=== PATIENT | male | born 1955 | race African-American/Black ===

== ENCOUNTER → 2017-10-16 | Outpatient (CLI) | payer MEDICARE, MEDICAID | END | disposition home or self-care (01) | LOC: KCIC 12:49 | DX: S59.292A Other physeal fracture of lower end of radius, left arm, initial encounter for closed fracture (principal); M79.89 Other specified soft tissue disorders; X58.XXXA Exposure to other specified factors, initial encounter; Y93.89 Activity, other specified; Y92.89 Other specified places as the place of occurrence of the external cause; Y99.8 Other external cause status | CPT/HCPCS: 73110 ==

== ENCOUNTER → 2018-07-10 | Outpatient (CLI) | payer MEDICARE, MEDICAID ==
[~2018-07-10] MED LIST: ALPR0.5T6 PO; EMTR1TAB8 PO; IBUP200T44 PO; RALT400T PO; TRAV5DRO OP
--- NOTE | 2018-07-10 17:21 | RAD ---
Renal ultrasound HISTORY: CKD stage III FINDINGS: Inferior vena cava and aorta are secured by bowel gas. Right kidney measures 11.6 x 4.8 x 5.4 cm. No hydronephrosis. Left kidney measures 11.0 x 5.2 x 4.9 cm. No evidence of hydronephrosis. Bilateral ureteric jets are seen in the urinary bladder. Prostate volume is 59 cc. IMPRESSION: No sonographic abnormality of either kidney. Electronically signed by: Clement Blanc MD (07/10/2018 5:18 PM) [facility]
== END | disposition home or self-care (01) ==
LOC: US 15:17
PROVIDERS: ATTEND Internal Medicine Nephrology
DX: N18.3 Chronic kidney disease, stage 3 (moderate) (principal); E66.9 Obesity, unspecified
CPT/HCPCS: 76770

== ENCOUNTER → 2019-09-03 | Outpatient (CLI) | payer MEDICARE, MEDICAID ==
[~2019-09-03] MED LIST changes: +ABAC1TAB13 PO; +ACET325T9 PO; +BYSTOLIC5 MG PO; +CHOL500051 PO; +HYDR-3164 PO
[2019-09-03 14:26] LABS: BASO # 0.1 x10^3/uL (0.0-0.2); BASO % 1 % (0-3); EOS # 0.1 x10^3/uL (0.0-0.7); EOS % 3 % (0-3); HEMATOCRIT 45.5 % (39.0-53.0); HEMOGLOBIN 15.6 g/dL (13.0-17.5); LYMPH # 1.3 x10^3/uL (1.0-4.8); LYMPH % 29 % (24-48); MEAN CORPUSCULAR HEMOGLOBIN 31 pg (25-35); MEAN CORPUSCULAR HGB CONC 34 g/dL (31-37); MEAN CORPUSCULAR VOLUME 91 fL (79-100); MONO # 0.5 x10^3/uL (0.0-1.1); MONO % 12 % (0-9); NEUT # 2.4 x10^3/uL (1.8-7.7); NEUT % 55 % (31-73); PLATELET COUNT 182 x10^3/uL (140-400); RED BLOOD COUNT 4.98 x10^6/uL (4.30-5.70); RED CELL DISTRIBUTION WIDTH 14.9 % (11.5-14.5); WHITE BLOOD COUNT 4.4 x10^3/uL (4.0-11.0)
[2019-09-03 14:42] LABS: CALCIUM 8.5 mg/dL (8.5-10.1); CREATININE 1.5 mg/dL (0.7-1.3); GFR 56.8; POTASSIUM 3.8 mmol/L (3.5-5.1)
== END | disposition home or self-care (01) ==
LOC: SURGPAT 13:00
PROVIDERS: ATTEND Surgery
DX: Z01.818 Encounter for other preprocedural examination (principal); Z11.59 Encounter for screening for other viral diseases; L72.3 Sebaceous cyst
CPT/HCPCS: 36415; 80048; 85025; U0003

== ENCOUNTER 2019-09-08 08:23 | Day surgery (SDC) | payer MEDICARE, MEDICAID ==
[~2019-09-08] VITALS: Ht 182.9 cm; Wt 108.5 kg
[~2019-09-08 08:23] MED LIST changes: +BUPIVACAINE-EPI 0.5%-1:200000 MPF 30 ML VIAL. ONE; -HYDR-3164 PO; +HYDROmorphone 2 MG/ML VIAL IV PRN; +IV RINGERS,LACTATED 1000ML 1,000 ML IV SCH; +LIDOCAINE 1% PF 2 ML VIAL. ID PRN; +MORPHINE SULFATE 2 MG/ML VIAL. IV PRN; +ONDANSETRON PF 4 MG/2 ML VIAL. IV PRN; +PROCHLORPERAZINE 10 MG/2 ML VIAL. IV PRN; +fentaNYL PF VIAL 100 MCG/2 ML VIAL IV PRN
[2019-09-08] MEDS ORDERED: MIDAZOLAM HCL/PF 2 MG/2 ML VIAL. ONE (09:26)
[2019-09-08] MEDS ORDERED: DEXAMETHASONE SOD PHOS 4 MG/ML VIAL ONE (09:26)
[2019-09-08] MEDS ORDERED: ONDANSETRON PF 4 MG/2 ML VIAL. ONE (09:26)
[2019-09-08] MEDS ORDERED: fentaNYL PF VIAL 100 MCG/2 ML VIAL ONE ×2 (09:26→10:30)
[2019-09-08] MEDS ORDERED: LIDOCAINE 2% PF 5 ML VIAL. ONE (09:27)
[2019-09-08] MEDS ORDERED: PROPOFOL 10 MG/ML (20ML) VIAL. IV ONE (09:27)
[2019-09-08] MEDS ORDERED: GLYCOPYRROLATE 1 MG/5 ML VIAL. ONE (09:57)
[2019-09-08] MEDS ORDERED: ceFAZolin 2GM PREMIX 2 GM/50 ML BAG IV ONE (10:00)
[2019-09-08] MEDS ORDERED: HYDR-3164 PO (10:40)
--- NOTE | 2019-09-08 10:42 | DISCH ---
DISCHARGE INSTRUCTIONS Condition on Discharge Condition on Discharge: Stable Activity After Discharge Activity Instructions for Disc: Activity as tolerated, Avoid exertion Lifting Instructions after Dis: No heavy lifting Driving Instructions after Dis: Do not drive today Diet after Discharge Diet after Discharge: Regular Wound Incision Care Wound/Incision Care: Ice to area for comfort Other wound/incision instructi: july shower Friday Follow-Up Follow up with: Ashwin's office ten days FERNANDEZ REA MD Sep 08, 2019 10:42
--- NOTE | 2019-09-08 10:48 | PDOC ---
BRIEF OPERATIVE NOTE Date: Sep 08, 2019 Pre-Op Diagnosis sebaceous cyst right hip skin tags posterior neck and left chest Post-Op Diagnosis same Procedure Performed excision cyst, ablation skin tags Surgeon Ashwin Print Cutter Renetta TRIPATHI Anesthesia Type: General (LMA) Blood Loss 5cc IV Fluid 500cc Specimens Obtained skin and subcutaneous tissue right lateral thigh Findings sebaceous cyst Complications none Operative Note Wk # [id number] FERNANDEZ REA MD Sep 08, 2019 10:48
[2019-09-08] MEDS ORDERED: HYDROcodone/APAP 5/325MG 1 TAB TABLET PO ONE (11:00)
[2019-09-08 11:04] VITALS: BP 138/85
--- NOTE | 2019-09-08 11:07 | OP ---
DATE OF SURGERY: 09/08/2019 PREOPERATIVE DIAGNOSES: 1. Sebaceous cyst, right thigh. 2. Skin tags posterior neck and left chest. POSTOPERATIVE DIAGNOSES: 1. Sebaceous cyst, right thigh. 2. Skin tags posterior neck and left chest. PROCEDURE: 1. Excision of sebaceous cyst, right lateral thigh. 2. Ablation skin tags posterior neck and left chest. SURGEON: Jairo Rea MD. SURGICAL TERRITORY MANAGER: DEUCE Workman. ANESTHESIA: General LMA. BLOOD LOSS: 5 mL. INTRAVENOUS FLUIDS: 500 mL. DESCRIPTION OF PROCEDURE: The patient brought to the operating suite, given a general LMA and placed in the left lateral decubitus position. The area around the cyst, which had been outlined with a marking pen in preoperative holding with the patient's assistance, was infiltrated with local anesthetic, incised and the skin process and underlying tissue removed en bloc. Specimen was 8 x 5 x 3 cm. Hemostasis with cautery. Wound approximated with interrupted inverted 3-0 Vicryl in the subcutaneous tissue. Subcuticular 4-0 Monocryl with Steri-Strips for the skin. The skin tag in the posterior neck were painted with Betadine, excised and cauterized. The patient placed back in the supine position and the skin tag on the left lateral chest was similarly removed. Correct sponge count was obtained. The patient was awakened from his anesthetic and taken to the recovery room in satisfactory condition. JAIRO REA MD DR: JASON/christian JOB#: [id number] / [id number]
--- NOTE | 2019-09-09 18:06 | PATHOLOGY ---
[facility] Accession Number: [id number] . 01 Material submitted: . thigh - SKIN AND SUBCUTANEOUS TISSUE, RIGHT THIGH. Modifiers: right . 01 Clinical history: . Sebaceous cyst, excision skin tags posterior neck left side . 02 Diagnosis: Skin and subcutaneous tissue, right thigh lesion excision: - Follicular cyst, infundibular type, with focal acute inflammation, chronic inflammation, foreign body giant cell reaction, and surrounding reactive fibrosis. (JPM:wyatt; 09/09/2019) S 09/09/2019 1522 Local . 02 Comment: There is no evidence of malignancy. (JPM:wyatt; 09/09/2019) . 02 Electronically signed: . Mark Sutherland MD, Pathologist NPI- [id number] . 01 Gross description: . The specimen is received in formalin, labeled "Clement Brady, skin and sebaceous tissue right thigh" and consists of an unoriented elliptical segment of morin skin with underlying adipose tissue measuring 6.4 x 2.8 x 2.9 cm. The epidermal surface displays multiple scabbed lesion measuring up to 0.7 cm. Sectioning reveals a cystic structure measuring up to 1.5 cm in diameter containing soft white amorphous material. A healthcare sales representative section is submitted in A1. ([facility]; 09/08/2019) JFQ/JFQ 09/08/2019 1835 Local . 02 Pathologist provided ICD-10: L72.0, L98.9, L90.5 . 02 CPT . 187716 Specimen Comment: A courtesy copy of this report has been sent to [phone], [phone] Specimen Comment: [id number] Specimen Comment: Report sent to / DR HERNANDEZ Performed at: [id number] [facility] [address], [place], [place] [id number] MD Ryan Ramon MD Phone: [phone] Performed at: [address] [id number] MD Mark Sutherland MD Phone: [phone]
== END 2019-09-08 11:25 | disposition home or self-care (01) ==
LOC: SURG 08:23
PROVIDERS: ATTEND Surgery
DX: L72.8 Other follicular cysts of the skin and subcutaneous tissue (principal); L08.89 Other specified local infections of the skin and subcutaneous tissue; L91.8 Other hypertrophic disorders of the skin; L90.5 Scar conditions and fibrosis of skin; G62.9 Polyneuropathy, unspecified; M79.7 Fibromyalgia; F41.9 Anxiety disorder, unspecified; E66.9 Obesity, unspecified; Z68.32 Body mass index [BMI] 32.0-32.9, adult; Z87.891 Personal history of nicotine dependence; Z72.89 Other problems related to lifestyle; Z87.39 Personal history of other diseases of the musculoskeletal system and connective tissue
CPT/HCPCS: 11200; 11406; 88304; A7015; J0696; J1100; J2250; J2405; J2704; J3010; J3490

== ENCOUNTER → 2019-10-12 | Outpatient (CLI) | payer MEDICARE, MEDICAID ==
[~2019-10-12] MED LIST changes: -BUPIVACAINE-EPI 0.5%-1:200000 MPF 30 ML VIAL. ONE; +HYDR-3164 PO; -HYDROmorphone 2 MG/ML VIAL IV PRN; -IV RINGERS,LACTATED 1000ML 1,000 ML IV SCH; -LIDOCAINE 1% PF 2 ML VIAL. ID PRN; -MORPHINE SULFATE 2 MG/ML VIAL. IV PRN; -ONDANSETRON PF 4 MG/2 ML VIAL. IV PRN; -PROCHLORPERAZINE 10 MG/2 ML VIAL. IV PRN; -fentaNYL PF VIAL 100 MCG/2 ML VIAL IV PRN
--- NOTE | 2019-10-12 19:10 | RAD ---
CHEST PA LATERAL History: Reason: COPD with acute exacerbation / Spl. Instructions: / History: Comparison: March 23, [address] February 06, 2008 Findings: Patchy mid and bibasilar opacities most prominent in the left lower lung. No pleural effusion. No pneumothorax. Normal heart size. Calcified right midlung nodule, likely prior granulomatous disease. Impression: 1. Multifocal patchy opacities, can be seen with pneumonia including viral pneumonia. Recommend follow-up to ensure resolution. Electronically signed by: Pete Dong DO (10/12/2019 7:07 PM) [facility]
== END | disposition home or self-care (01) ==
LOC: RAD 16:57
PROVIDERS: ATTEND Internal Medicine
DX: J44.1 Chronic obstructive pulmonary disease with (acute) exacerbation (principal); J12.9 Viral pneumonia, unspecified; R91.1 Solitary pulmonary nodule
CPT/HCPCS: 71046

== ENCOUNTER → 2021-05-08 | Outpatient (CLI) | payer MEDICARE, MEDICAID ==
[~2021-05-08] MED LIST changes: +CHOL5000 PO; -CHOL500051 PO
--- NOTE | 2021-05-08 17:41 | KCIC ---
EXAM: XR EXAM OF ANKLE_RIGHT 3VIEWS, XR RT TIBIA+FIBULA 05/08/2021 3:10 PM CLINICAL INDICATION: Right ankle lower leg pain medially, injured one month ago COMPARISON: None TECHNIQUE: AP and lateral views of the right tibia and fibula. AP, oblique, and lateral views of the right ankle FINDINGS: Right tibia and fibula: No acute fracture. Probable ossification along the proximal tibiofibular join t, best seen on AP view. Alignment is normal. Soft tissue is normal. Right ankle: The medial malleolus is irregular in appearance, possibly due to old or healing avulsion injury. No acute fracture of the ankle. Alignment is normal. Ankle mortise is symmetric and talar do me is intact. There are small calcaneal enthesophytes and small osteophytes the midfoot. Soft tissue swelling, greatest medially. IMPRESSION: 1. No acute osseous abnormality of the right tibia and fibula. Irregular appearance of the medial malleolus, which may be sequela of old or healing avulsion injury. 3. Soft tissue swelling at the ankle, greatest medially. Electronically signed by: Janet Colon MD (05/08/2021 5:39 PM) [id number]
== END ==
LOC: KCIC 15:06
PROVIDERS: ATTEND Family Medicine
DX: M79.89 Other specified soft tissue disorders (principal); M25.771 Osteophyte, right ankle; M77.31 Calcaneal spur, right foot; M25.571 Pain in right ankle and joints of right foot
CPT/HCPCS: 73590; 73610

== ENCOUNTER → 2021-07-06 | Outpatient (CLI) | payer MEDICARE, MEDICAID ==
--- NOTE | 2021-07-06 15:45 | KCIC ---
EXAM: XR THORACIC SPINE 3VIEWS, XR LUMBAR SPINE 2-3V 07/06/2021 1:15 PM CLINICAL INDICATION: Chronic lower back pain COMPARISON: None. TECHNIQUE: AP, lateral, and swimmer's views of the thoracic spine. AP, lateral, and coned-down latera l views of the lumbar spine. FINDINGS: Thoracic spine: No acute fracture. Alignment is normal. There is mild disc space narrowing with small anterior osteophytes throughout the thoracic spine and prominent right lateral osteophytes at T4-T5, T6-T7, T7-T8, and T8-T9. On lateral view, there are sclerotic foci projecting over the T4, T6, T7 ve rtebral bodies, which may be due to the superimposed osteophytes although bone lesions are not entire ly excluded. Lumbar spine: There are 5 nonrib-bearing lumbar vertebral bodies. No acute fracture. Alignment is nor mal. Mild disc space narrowing with small anterior and lateral osteophytes at multiple levels. No sig nificant facet arthrosis. IMPRESSION: 1. 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 2 There are sclerotic foci projecting over the T4, T6, and T7 vertebral bodies on lateral view of the thoracic spine. These may be due to superimposed prominent lateral osteophytes, however however erasto mmend CT or MRI of the thoracic spine to exclude sclerotic bone lesions. Electronically signed by: Janet Colon MD (07/06/2021 3:43 PM) [id number]
== END ==
LOC: KCIC MRI 13:06
PROVIDERS: ATTEND Family Medicine
DX: M51.35 Other intervertebral disc degeneration, thoracolumbar region (principal); M48.04 Spinal stenosis, thoracic region; M25.78 Osteophyte, vertebrae
CPT/HCPCS: 72072; 72100